=== PATIENT | female | born 1985 | race Caucasian/White ===

== ENCOUNTER 2017-12-20 19:19 | Outpatient (CLI) | END 2017-12-20 23:38 | disposition home or self-care (01) ==

== ENCOUNTER 2018-01-02 06:59 | Outpatient (CLI) | END 2018-01-02 09:15 | disposition home or self-care (01) ==

== ENCOUNTER 2018-01-09 13:38 | Outpatient (CLI) | END 2018-01-09 15:45 | disposition home or self-care (01) ==

== ENCOUNTER 2018-01-11 21:48 | Outpatient (CLI) | END 2018-01-12 00:20 | disposition home or self-care (01) ==

== ENCOUNTER 2018-01-30 11:40 | Inpatient (IN) | END 2018-02-03 22:00 | disposition home or self-care (01) | DRG 788 ==